=== PATIENT | male | born 1980 | race Caucasian/White ===

== ENCOUNTER 2023-02-05 08:14 | Outpatient (REF) | payer BC, SELFPAY ==
--- NOTE | 2023-02-05 08:22 | EMG_ITS ---
Right median and ulnar motor and sensory studies were performed. Right radial sensory study was performed. Right median and lateral antecubital brachial sensory studies were performed and paraspinal muscles were tested with a needle. IMPRESSION: Mild right ulnar neuropathy across cubital tunnel. There is no evidence of median neuropathy. MD MELVIN Claros/SARAL / [phone]
== END 2023-02-05 08:15 | disposition home or self-care (01) ==
LOC: HO.NEURO 08:14
PROVIDERS: PCP Family Medicine; Visit Provider Family Medicine
DX: R20.0 Anesthesia of skin (principal); R20.2 Paresthesia of skin
CPT/HCPCS: 95886; 95910

== ENCOUNTER 2023-03-13 08:30 | Outpatient (AMB) | payer BC, SELFPAY ==
--- NOTE | 2023-03-13 08:36 | A.OFFVIS_ITS ---
Intake Intake Visit Reasons: TV NEUROS[employer]GE[employer] MWL Allergies No Known Allergies Allergy (Verified 02/05/23 16:09) HPI HPI Comments History of Present Illness Details This is a 42 year old man who is here to start SWL program with SWL classes. His goal is too feel comfortable and healthier.. He reports first being concerned about his weight since teenager. He has tried multiple methods of weight loss including WW - lost 40 lbs with regain without permanent results. He lives with his parents. His and children are trying to emigrate form [facility]. 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 He does not cook, his mother does all the cooking. Tries to eat every 2.5 - 3 hours throughout the day. Drinks coffee through out the day --5 cups per day He wakes at: 5:30 am bed at 10:30 pm. Breakfast: 7am - coffee with 1-2% and no sweetener. 2-3 eggs OR sweet pastry 10 am - cereal or granola bar Lunch: 12 pm - mostly office cafeteria - tortilla with vegetables and protein, cheese, humus OR chicken tenders and barbadian fries. Zero Coke Dinner: 5;30 pm - rice/beans tortilla with meat or chicken, vegetables rarely - never with dinner. [place] or water After dinner: cheese sticks OR meat sticks, dry popcorn, chips and cheese salsa (eats standing while stressed - not mindful Other snacks: 3:30 pm - granola or cereal bar Liquids: Diet caffeine soda - 1/2 liter, no fruit juice Alcohol intake:none, tobacco: none, marijuana: none Exercise: has gym membership, last time a few weeks ago. RADHA:0 ESS:5 GERD0: QOL:89 PFSH Surgical History No history of previous surgery Social History (Updated 02/05/23 @ 16:11 by Alondra Gresham CMA) Alcohol intake: current Alcohol intake frequency: holidays/special occasions only Patient Tobacco Use Status: Never used Tobacco Assessment & Plan Assessment & Plan (1) Morbid obesity: Code(s): E66.01 - Morbid (severe) obesity due to excess calories Plan: This is a 42 yo man with morbid obesity who qualifies for SWL but wants to start MWL program. Blood work has been ordered. He will watch all MWL classes before appt with Alison. 1. Adequate sleep of 7-8 hours per night discussed 2. Healthy meal plan - coffee in am, no caffeine after 2pm. All meals/MR's need to take 20 minutes to complete 7 am - protein shake with water or UAM 10 am - protein bar 1 pm - 6 oz - 12 forks protein and 12 forks vegetables. 1 serving fresh fruit 4 pm- protein shake 7pm- protein bar or yogurt. Exercise - Jose Antonio, aerobic fitness or treadmill 4 d/ week - goal 2000 alfonso/week. Treadmill speed 3.0, incline 2 -6 (3 mintues) - to burn 300 calories. 10/alfonso minute Pt will purchase body composition analyzer (recommended list given to patient) and weight herself weekly. Next appt with Shoaib in 4 weeks, in 8 weeks.. Text me with any questions and weekly weights. Patient is morbidly obese and is not considered stable at this time.?I spent a total of 60 minutes reviewing/updating records, examining the patient and counseling the patient on weight management as detailed above. (2) Pre-diabetes: Code(s): R73.03 - Prediabetes Plan: [facility] Hgb A1C and fasting glucose Orders: Orders Insulin Today E66.01 - Morbid (severe) obesity due to excess calories, R73.03 - Prediabetes Hemoglobin A1c Today E66.01 - Morbid (severe) obesity due to excess calories, R73.03 - Prediabetes Complete Blood Count Auto Diff Today E66.01 - Morbid (severe) obesity due to excess calories, R73.03 - Prediabetes Lipid Panel Today E66.01 - Morbid (severe) obesity due to excess calories, R73.03 - Prediabetes Comprehensive Met. Panel Today E66.01 - Morbid (severe) obesity due to excess calories, R73.03 - Prediabetes TSH reflex Free T4 Today E66.01 - Morbid (severe) obesity due to excess calories, R73.03 - Prediabetes Vitamin D 25-OH Total Today E66.01 - Morbid (severe) obesity due to excess calories, R73.03 - Prediabetes IRON PROFILE Today E66.01 - Morbid (severe) obesity due to excess calories, R73.03 - Prediabetes Vitamin B12 and Folate Today E66.01 - Morbid (severe) obesity due to excess calories, R73.03 - Prediabetes Zinc Today E66.01 - Morbid (severe) obesity due to excess calories, R73.03 - Prediabetes C Reactive Protein Today E66.01 - Morbid (severe) obesity due to excess calories, R73.03 - Prediabetes Vitamin B1 Today E66.01 - Morbid (severe) obesity due to excess calories, R73.03 - Prediabetes Vitamin A Today E66.01 - Morbid (severe) obesity due to excess calories, R73.03 - Prediabetes Ferritin Today E66.01 - Morbid (severe) obesity due to excess calories, R73.03 - Prediabetes Telehealth Telehealth Location of provider rendering services: practice address Location of patient: address on file Patient Identification confirmed using: Name, : Yes Telehealth method: video Patient verbally consented to treatment: Yes Patient verbally consented to billing insurance company: Yes Patient informed of any privacy concerns related to visit: Yes Coding Level of Care Code Tele [facility] Pt Level 5 (65530) Diagnoses Morbid obesity E66.01 Pre-diabetes R73.03
== END 2023-03-13 09:37 | disposition home or self-care (01) ==
LOC: HO.HBS 09:36
PROVIDERS: PCP Family Medicine; Visit Provider Physician Assistant
DX: E66.01 Morbid (severe) obesity due to excess calories (principal); R73.03 Prediabetes
CPT/HCPCS: 99205

== ENCOUNTER → 2023-03-13 08:30 | Outpatient (BNVA) | payer BC, SELFPAY | PROVIDERS: PCP Family Medicine; Visit Provider Physician Assistant | DX: E66.01 Morbid (severe) obesity due to excess calories (principal); R73.03 Prediabetes ==